=== PATIENT | male | born 1975 | race Caucasian/White ===

== ENCOUNTER 2017-12-20 08:52 | Emergency (ER) | payer MEDICAID ==
[~2017-12-20] VITALS: Ht 165.1 cm; Wt 90.9 kg
[2017-12-20 09:09] VITALS: Ht 165.1 cm; Wt 90.9 kg
[2017-12-20] MEDS ORDERED: ADIPEX-P37.5 M1 PO (09:10)
[2017-12-20] MEDS ORDERED: KLONOPIN1 MG PO (09:11)
[2017-12-20 12:05] LABS: BASOPHILS 0.3 % (0-2); EOSINOPHILS 0.7 % (0-7); HEMATOCRIT 47.5 % (42.0-54.0); HEMOGLOBIN 16.6 g/dL (13.5-17.5); IMMATURE GRANULOCYTES 0.3 % (0-5); LYMPHOCYTES 22.5 % (15-50); MCHC 34.9 g/dL (31.0-37.0); MCV 88.8 fL (80.0-100.0); MEAN PLATELET VOLUME 10.9 fL (7.4-10.4); MONOCYTES 7.2 % (2-11); PLATELET COUNT 187 10x3/uL (130-400); RBC 5.35 10x6/uL (4.20-6.10); RDW 12.9 % (11.5-14.5); WBC 7.2 10x3/uL (4.8-10.8)
[2017-12-20 12:15] LABS: UDS - AMPHET POSITIVE QUAL (NEGATIVE); UDS - BARB NEGATIVE QUAL (NEGATIVE); UDS - BENZO NEGATIVE QUAL (NEGATIVE); UDS - COCAINE NEGATIVE QUAL (NEGATIVE); UDS - OPIATE NEGATIVE QUAL (NEGATIVE); UDS - PCP NEGATIVE QUAL (NEGATIVE); UDS - THC POSITIVE QUAL (NEGATIVE)
[2017-12-20 12:22] LABS: ALBUMIN 3.7 g/dL (3.4-5.0); ALKALINE PHOSPHATASE 80 U/L (46-116); ALT (SGPT) 51 U/L (10-68); BILIRUBIN - TOTAL 0.66 mg/dL (0.2-1.3); CALC OSMOLALITY 277 mosm/kg (275-300); CALCIUM 8.8 mg/dL (8.5-10.1); CARBON DIOXIDE 32.5 mmol/L (21.0-32.0); CHLORIDE - SERUM 102 mmol/L (98-107); GLUCOSE 92 mg/dL (74-106); POTASSIUM - SERUM 4.2 mmol/L (3.5-5.1); PROTEIN - SERUM 7.5 g/dL (6.4-8.2); SODIUM 139 mmol/L (136-145); UREA NITROGEN 12 mg/dL (7-18); eGFR NON AFRICAN AMERICAN 87 mL/min (90-120)
[2017-12-20 17:09] VITALS: BP 125/83
== END 2017-12-20 14:04 | disposition home or self-care (01) ==
LOC: D.ER 08:52
PROVIDERS: Family Medicine
DX: R53.83 Other fatigue (principal); F15.10 Other stimulant abuse, uncomplicated; F22 Delusional disorders

== ENCOUNTER 2018-05-05 10:54 | Outpatient (CLI) | payer MEDICAID ==
[~2018-05-05] VITALS: Ht 165.1 cm; Wt 90.9 kg
--- NOTE | ~2018-05-05 | HEMODYNAMI ---
PATIENT:NIKO VOGEL MEDICAL RECORD: [id number] : 77 LOCATION:[facility] ADMISSION DATE: 05/05/18 Generatedon:05/05/201813:26 Patient name: NIKO VOGEL Patient #: [id number] SSN: : 1975 Date of study: 05/05/2018 Page: Of Hemodynamic Procedure Report Patient Data Patient Demographics Procedure consent was obtained First Name: NIKO Gender: Male Last Name: JASPREET : 1975 Middle Initial: E Age: 42 year(s) Patient #: [id number] Race: Unknown Additional ID: [id number] Contact details Address: [address] [place] [address] State: [place] City: [place] Zip code: [address] Past Medical History Allergies: No known allergies Admission Admission Data Admission Date: 05/05/2018 Admission Time: 10:54 Height (in.): 65 BSA: 2 (m2) Height (cm.): 165.1 BMI: 34.28 (kg/m2) Weight (lbs.): 206 Weight (kg.): 93.44 Lab Results Lab Result Date: 05/05/2018 Lab Result Time: 0:00 Biochemistry Name Units Result Min Max BUN mg/dl 16 --(---*)-- 7 18 Creatinine mg/dl 1 --(--*-)-- 0.6 1.3 CBC Name Units Result Min Max Hemoglobin g/dl 16.6 --(---*)-- 13.5 17.5 Procedure Procedure Types Cath Procedure Diagnostic Procedure LHC LHC w/Coronaries Peripheral Cath Diagnostic Procedure Dope House Operator Helper Peripheral Procedures Lcgkh-Zmpeyvj-Iyi-Off Procedure Description Procedure Date Procedure Date: 05/05/2018 Procedure Start Time: 13:10 Procedure End Time: 13:23 Procedure Staff Name Function Ryan Mcgee MD Performing Physician Janet Lucero RT Monitor Nyasia Pinzon RT Scrub Yesika Serrato RN Nurse Procedure Data Cath Procedure Fluoroscopy Diagnostic fluoroscopy Total fluoroscopy Time: 2.6 time: 2.6 min min Diagnostic fluoroscopy Total fluoroscopy dose: 598 dose: 598 mGy mGy Contrast Material Contrast Material Type Amount (ml) Isovue 300 102 Entry Location Entry Primary Successful Side Size Upsize Upsize Entry Closure Succes sful Closure Location (Fr) 1 (Fr) 2 (Fr) Remarks Device Remarks Femoral Right 5 Fr Exoseal artery Estimated blood loss: 5 ml Diagnostic catheters Device Type Used For End Catheter Placement MULTIPACK JL 4.0 5Fr Procedure catheter DIAGNOSTIC JL 3.5 5Fr catheter ([id number]) MULTIPACK 3DRC 5Fr Procedure catheter MULTIPACK Pigtail 5 Fr Procedure catheter Procedure Complications No complications Procedure Medications Medication Administration Route Dosage 0.9% NaCl I.V. 100 ml/hr Oxygen etCO2 Nasal cannula 2 l/min Lidocaine 2% added to field 20 Heparin Flush Bag added to field 2 bags (1000units/500ml NS) Versed I.V. 2 mg Fentanyl I.V. 100 mcg Versed I.V. 2 mg Fentanyl I.V. 100 mcg Versed I.V. 2 mg Versed I.V. 2 mg Hemodynamics Rest BSA: 2 (m2) HGB: 16.6 (g/dl) O2 Consumption: Estimated: 242.92 (ml/min) O2 Consu mption indexed: Estimated:121.46 (ml/min/m) Heart Rate: 69 (bpm) Pressure Samples Time Site Value (mmHg) Purpose Heart Use Rate(bpm) 13:17 LV 101/6,9 Snapshot 92 13:18 AO 104/70(86) Pullback 90 13:18 LV 94/5,7 Pullback 90 Gradients Valve Time Site 1 Site 2 Mean SEP/DFP Peak To Heart Use (mmHg) (sec/min) Peak Rate (mmHg) (bpm) Aortic 13:18 LV AO 0 90 94/5,7 104/70(86) Calculations Valve P-P Mean Valve Index Valve Source Name Gradient Area Flow (cm2) Aortic 0 0 Snapshots Pre Cath Intra NCS Post Cath Vital Signs Time Heart Resp SPO2 etCO2 NIBP (mmHg) Rhythm Pain Sedation Rate (ipm) (%) (mmHg) Status Level (bpm) 12:50:59 68 17 97 37.4 114/68(89) NSR 0 (11) 10(A) , No pain 12:55:01 70 18 100 36.3 105/86(95) NSR 0 (11) 10(A) , No pain 12:59:07 68 16 98 35.6 113/66(86) NSR 0 (11) 10(A) , No pain 13:03:12 63 12 97 29.6 112/74(91) NSR 0 (11) 10(A) , No pain 13:07:16 67 13 96 37.1 110/79(106) NSR 0 (11) 10(A) , No pain 13:11:20 74 13 98 38.5 126/77(109) NSR 0 (11) 10(A) , No pain 13:15:28 84 16 97 33.4 106/81(102) NSR 0 (11) 10(A) , No pain 13:19:27 94 12 97 37.8 116/81(107) NSR 0 (11) 10(A) , No pain 13:23:35 76 16 98 34.8 109/74(92) NSR 0 (11) 10(A) , No pain Medications Time Medication Route Dose Verified Delivered Reason Notes Eff ectiveness by by 12:50:05 0.9% NaCl I.V. 100 Ryan Yesika used for ml/hr Arely Rojelio procedure MD SHEA 12:50:11 Oxygen etCO2 2 Ryan Yesika used for Nasal l/min Arely Rojelio procedure cannula RN 12:50:16 Lidocaine 2% added 20ml Ryan Ryan for local to vial [facility] anesthetic field MD RICCI 12:50:23 Heparin Flush added 2 Ryan Ryan used for Bag to bags [facility] procedure (1000units/500ml field MD RICCI NS) 13:10:17 Versed I.V. 2 mg Ryan Yesika for Arely Rojelio sedation MD SHEA 13:10:23 Fentanyl I.V. 100 Ryan Yesika for mcg Arely Rojelio sedation RN 13:14:12 Versed I.V. 2 mg Ryan Yesika for Arely Rojelio sedation MD SHEA 13:14:17 Fentanyl I.V. 100 Ryan Yesika for mcg Arely Rojelio sedation MD SHEA 13:19:45 Versed I.V. 2 mg Ryan Yesika for Arely Rojelio sedation MD SHEA 13:20:18 Versed I.V. 2 mg Ryan Yesika for Arely Rojelio sedation MD fitness management director Log Time Note 12:39:11 Patient Height : 65 inches 12:39:14 Patient Weight : 206 lbs 12:39:24 H&P Date Dictated: 04/11/2018 Within 30 days and on chart., H&P Addendum completed by physician on day of procedure. (MUST COMPLETE FOR ALL OUTPATIENTS). 12:39:33 Patient allergic to No known allergies 12:40:48 Yesika Serrato RN sent for patient. Start room use. 12:40:49 Time tracking: Regular hours (M-F 7:00 - 5:00) 12:40:52 Plan of Care:Hemodynamics will remain stable., Cardiac rhythm will remain stable., Comfort level will be maintained., Respiratory function will remain adequate., Patient/ family verbilizes understanding of procedure., Procedure tolerated without complication., Recovers from procedure without complications.. 12:40:53 Signed procedure consent form obtained from patient. 12:45:34 Patient received from Pre/Post Procedure Room to [facility] 2 Alert and oriented. Tansferred to table in Supine position. 12:45:39 Warm blankets applied, and kodi hugger turned on for patient comfort. 12:45:40 Correct patient and procedure confirmed by team. 12:45:40 ECG and BP/O2 sat monitors applied to patient. 12:49:52 Vital chart was started 12:50:05 0.9% NaCl 100 ml/hr I.V. was administered by Yesika Serrato RN; used for procedure; 12:50:11 Oxygen 2 l/min etCO2 Nasal cannula was administered by Yesika Serrato RN; used for procedure; 12:50:16 Lidocaine 2% 20ml vial added to field was administered by Ryan Mcgee MD; for local anesthetic; 12:50:23 Heparin Flush Bag (1000units/500ml NS) 2 bags added to field was administered by Ryan Mcgee MD; used for procedure; 12:57:34 Baseline sample Acquired. 12:57:37 Rhythm: sinus rhythm 12:57:38 Full Disclosure recording started 12:57:38 Pre-procedure instructions explained to patient. 12:57:39 Pre-op teaching completed and patient verbalized understanding. 12:57:40 Family in patients room. 12:57:42 Patient NPO since Midnight. 12:57:44 Is patient on blood thinner?Yes 12:57:45 Patient diabetic? No. 12:57:48 Previous problem with sedation/anesthesia? No ? 12:57:48 Snore? Yes 12:57:50 Sleep apnea? No 12:57:51 Deviated septum? No 12:57:51 Opens mouth fully? Yes 12:57:52 Sticks out tongue? Yes 12:57:54 Airway obstruction? No ? 12:57:57 Dentures? No ? 12:58:55 Pre procedure: right dorsailis pedis pulse 2+ Normal; easily identifiable; not easily obliterated 12:58:58 Pre procedure: left dorsailis pedis pulse 2+ Normal; easily identifiable; not easily obliterated 12:59:08 IV patent on arrival in left hand with 0.9% NaCl at [facility]. 12:59:12 Lab results completed and on chart. 12:59:14 Bilateral groins area was prepped with chlora-prep and draped in sterile fashion 12:59:15 Alarms reviewed by R. N. 12:59:15 Sharps counted by scrub and verified by R.N. 13:08:26 Lab Result : BUN 16 mg/dl 13:08:26 Lab Result : Creatinine 1 mg/dl 13:08:26 Lab Result : Hemoglobin 16.6 g/dl 13:08:46 --------ALL STOP TIME OUT------ 13:08:46 Final Timeout: patient, procedure, and site verified with staff and physician. All members of the team are in agreement. 13:08:48 Bilateral groins site verified by team. 13:08:51 Physical assessment completed. ASA score P 2 - A patient with mild systemic disease as per Ryan Mcgee MD. 13:08:53 Sedation plan: IV Moderate Sedation Medication:Versed, Fentanyl 13:08:58 Use device set Femoral Dx 13:08:59 ACIST Syringe (55278) opened to sterile field. 13:09:00 Bag Decanter (2001S) opened to sterile field. 13:09:01 ACIST Hand Control (29150) opened to sterile field. 13:09:01 ACIST Manifold (04323) opened to sterile field. 13:09:02 Tegaderm 4 x 4 (1626W) opened to sterile field. 13:09:03 Medline Cath Pack ([id number]) opened to sterile field. 13:09:03 DIAGNOSTIC WIRE .035 260cm J wire (830553) opened to sterile field. 13:09:04 DIAGNOSTIC Multipack 5Fr catheter set (UR9478) opened to sterile field. 13:09:05 SHEATH 5FR Sells (MGU269) opened to sterile field. 13:10:17 Procedure started. 13:10:17 Versed 2 mg I.V. was administered by Yesika Serrato RN; for sedation; 13:10:23 Fentanyl 100 mcg I.V. was administered by Yesika Serrato RN; for sedation; 13:10:43 Zero performed for pressure channel P1 13:10:50 Local anesthetic to right femoral artery with Lidocaine 2% by Ryan Mcgee MD.INITIAL ACCESS ONLY 13:10:58 A 5 Fr sheath was inserted into the Right Femoral artery 13:11:32 Zero performed for pressure channel P1 13:11:58 A MULTIPACK JL 4.0 5Fr catheter was advanced over the wire and used for Procedure. 13:13:08 Catheter removed. 13:13:17 UNABLE TO ENGAGE LCA 13:13:33 A DIAGNOSTIC JL 3.5 5Fr catheter ([id number]) was advanced over the wire and used for . 13:14:12 Versed 2 mg I.V. was administered by Yesika Serrato RN; for sedation; 13:14:17 Fentanyl 100 mcg I.V. was administered by Yesika Serrato RN; for sedation; 13:14:49 LCA angiography performed. 13:15:15 Catheter removed. 13:15:25 A MULTIPACK 3DRC 5Fr catheter was advanced over the wire and used for Procedure. 13:16:20 RCA angiography performed. 13:16:23 Catheter removed. 13:16:40 A MULTIPACK Pigtail 5 Fr catheter was advanced over the wire and used for Procedure. 13:17:09 LV gram done using BLACKWELL 13:17:15 Injector settings: Ml/sec: 10, Volume: 20, 13:17:33 LV hemodynamics recorded. 13:18:07 EF : 55 % 13:18:23 CATHETER PULLED DOWN FOR AFRO 13:18:29 Abdominal angiogram w/ runoff was performed. 13:18:48 Left leg runoff performed. 13:19:19 Right leg runoff performed. 13:19:45 Versed 2 mg I.V. was administered by Yesika Serrato RN; for sedation; 13:19:45 Catheter removed. 13:19:48 EXOSEAL 5Fr (EX500) opened to sterile field. 13:19:59 Sheath removed intact; hemostasis achieved with Exoseal to the Right Femoral artery. 13:20:13 Procedure ended.(Physican Out) 13:20:18 Versed 2 mg I.V. was administered by Yesika Serrato RN; for sedation; 13:20:33 Fluoroscopy time 02.60 minutes. 13:20:37 Fluoroscopy dose: 598 mGy 13:20:37 Flurop Dose total: 598 13:20:44 Contrast amount:Isovue 300 102ml. 13:20:47 Sharps counted by scrub and verified by R.N. 13:20:51 Post-op/insertion site Right Femoral artery dressed using a 4 x 4 and Tegaderm. 13:20:56 Post right femoral artery:stable, soft, clean and dry 13:21:02 Post procedure: right dorsailis pedis pulse 2+ Normal; easily identifiable; not easily obliterated. 13:21:13 Post-procedure physical assessment completed. ASA score P 2 - A patient with mild systemic disease as per Ryan Mcgee MD. 13:21:23 Post procedure rhythm: sinus rhythm 13:21:34 Estimated blood loss: 5 ml 13:21:35 Post procedure instruction explained to patient.Patient verbalizes understanding. 13:21:36 Patient needs reinforcement of post procedure teaching. 13:22:47 Procedure and supply charges have been captured, reviewed, submitted and are correct. 13:22:50 Procedure Complication : No complications 13:22:55 Vital chart was stopped 13:22:55 See physician's report for complete and final results. 13:22:57 Report given to Pre/Post Procedure Room. 13:23:00 Patient transfered to Pre/Post Procedure Room with Bed. 13:23:03 Procedure ended. 13:23:03 Full Disclosure recording stopped 13:23:09 End room use (Document Last) Device Usage Item Name Manufacture Quantity Catalog Hospital Part Current Minimal L ot# / Number Charge Number Stock Stock Serial# Code ACIST Acist 1 54232 870826 297843 204121 20 VIXXI Solutions (01178) SDI-Solution Inc Bag Microtek 1 758315 35683 961084 5 Decanter Medical Inc. (2001S) ACIST Hand Acist 1 60274 491870 139005 541723 5 Control Medical (68405) Systems Inc ACIST Acist 1 87454 334605 440625 793877 5 Manifold Medical (22216) Systems Inc Tegaderm 4 3M 1 1626W 864237 374136 560319 5 x 4 (1626W) Medline Medline 1 [id number] 640393 86548 096264 5 Cath Pack ([id number]) DIAGNOSTIC [facility] 1 815892 418868 673878 394381 30 WIRE .035 260cm J wire (671357) DIAGNOSTIC Cardinal 1 FX5744 747782 24666 158203 30 Multipack Health 5Fr catheter set (ZX8302) SHEATH 5FR Terumo [address] 290440 512549 907977 5 Sells (PGX148) MULTIPACK Cardinal 1 738932 5 JL 4.0 5Fr Health catheter DIAGNOSTIC Cardinal 1 [id number] 008224 468900 761452 5 JL 3.5 5Fr Health catheter ([id number]) MULTIPACK Cardinal 1 220221 5 3DRC 5Fr Health catheter MULTIPACK Cardinal 1 519000 5 Pigtail 5 Health Fr catheter EXOSEAL 5Fr Cardinal 1 EX500 633453 462071 378736 10 (EX500) Health Signature Audit [place] Stage Time Signature Unsigned Intra-Procedure 05/05/2018 Janet Lucero 1:26:19 PM RT(R) Signatures Monitor : Janet Lucero Signature : RT Date : Time : [place] [id number] [place] [address]
[~2018-05-05 10:54] MED LIST: ADIPEX-P37.5 M1 PO; KLONOPIN1 MG PO
[2018-05-05] MEDS ORDERED: HYDROCODON-ACET15 ML PO (11:19)
[2018-05-05] MEDS ORDERED: OMEPRAZOLE20 M1 PO (11:20)
[2018-05-05 11:33] VITALS: BP 121/78; Ht 165.1 cm; Wt 90.9 kg
[2018-05-05 11:45] LABS: BASOPHILS 0.3 % (0-2); EOSINOPHILS 1.7 % (0-7); HEMATOCRIT 46.7 % (42.0-54.0); HEMOGLOBIN 16.6 g/dL (13.5-17.5); IMMATURE GRANULOCYTES 0.1 % (0-5); MCHC 35.5 g/dL (31.0-37.0); MCV 87.3 fL (80.0-100.0); MEAN PLATELET VOLUME 10.8 fL (7.4-10.4); MONOCYTES 6.5 % (2-11); NEUTROPHILS 60.4 % (40-80); PLATELET COUNT 197 10x3/uL (130-400); RBC 5.35 10x6/uL (4.20-6.10); RDW 13.2 % (11.5-14.5)
[2018-05-05 11:53] LABS: CALC OSMOLALITY 279 mosm/kg (275-300); CARBON DIOXIDE 28.5 mmol/L (21.0-32.0); CHLORIDE - SERUM 103 mmol/L (98-107); GLUCOSE 91 mg/dL (74-106); POTASSIUM - SERUM 4.2 mmol/L (3.5-5.1); SODIUM 140 mmol/L (136-145); UREA NITROGEN 16 mg/dL (7-18); eGFR NON AFRICAN AMERICAN 87 mL/min (90-120)
--- NOTE | 2018-05-05 13:50 | NUR ---
DRESSING CDI TO RIGHT GROIN, AREA IS SOFT AND NONTENDER. PEDAL PULSES PALPABLE. HOB IS FLAT, DENIES ANY C/O CHEST PAIN, MATTHEW PO FLUIDS WITH NO C/O NAUSEA.
--- NOTE | 2018-05-05 14:03 | NUR ---
PT ALERT, C/O MOUTH BEING DRY, PO FLUIDS AT BEDSIDE. SERVED JELLO AND PUDDING. VSS. DRESSING CDI, PEDAL PULSES PALPABLE. PARENTS AT BEDSIDE. HOB FLAT, CALL LIGHT IN REACH.
--- NOTE | 2018-05-05 14:23 | NUR ---
PT C/O HEADACHE AND NECK PAIN,STATES HAS NECK PROBLEMS AND LAYING FLAT EXACERBATES THIS. ORDER RECEIVED FOR NORCO 10MG PO X1 AND THIS GIVEN, PT MATTHEW SODA AND JELLO WITH NO C/O NAUSEA. HOB IS FLAT, BED TILTED, MOTHER AT BEDSIDE, VSS, SAT IS 96% ON ROOM AIR. DRESSING IS CDI, PEDAL PULSES PALPABLE.
--- NOTE | 2018-05-05 14:40 | NUR ---
HOB ELEVATED 30 DEGREES, SANDWICH AND MORE SODA SERVED.
--- NOTE | 2018-05-05 15:24 | NUR ---
1500 HOB FULLY ELEVATED, DRESSING REMAINS CDI TO RIGHT GROIN, AREA IS SOFT AND NONTENDER. PEDAL PULSES PALPABLE. PT ALERT AND DENIES ANY C/O. VSS. 1520 DRESSING REMAINS CDI, PEDAL PULSES PALPABLE. PT HAS MATTHEW SANDWICH WITH NO C/O NAUSEA. IV DC'D WITH CATH INTACT AND PT IS DRESSING FOR DC.
--- NOTE | 2018-05-05 16:07 | NUR ---
1535 DC INSTRUCTIONS HAVE BEEN REVIEWED WITH PT AND MOTHER WHO VERBZLIZE UNDERSTANDING. PT HAS AMBULTED TO THE BATHROOMA ND VOIDED QS. RECHECKED GROIN AND AREA IS SOFT AND NONTENDER. DRESSING IS CDI. PT DENIES ANY C/O UPON DC, PT ESCORTED TO PRIVATE AUTO VIA WC BY NURSE WITH FATHER DRIVING HIM HOME.
--- NOTE | 2018-05-17 11:50 | OP ---
PATIENT NAME: NIKO VOGEL MEDICAL RECORD: [id number] :77 LOCATION:D.CAT ADMISSION DATE: SURGEON: SUSAN EVANS MD DATE OF OPERATION: 05/05/2018 PROCEDURE: Left heart catheterization, selective coronary angiography plus aortofemoral runoff, right femoral artery approach. CATHETERS: A 5-Slovenian sheath, 5/4 left and right Sophy, 5/4 pig. The procedure was well tolerated. The patient was returned to the head. Sheath was removed. Adequate hemostasis was obtained. FINDINGS: Left ventriculography in 30-degree BLACKWELL view: Normal wall motion and normal systolic function. CORONARY ANATOMY: LEFT MAIN: Left main is free of disease. LAD: Free of disease in the diagonal system. CIRCUMFLEX: Free of disease in the marginal system. RIGHT CORONARY ARTERY: Dominant artery, gives rise to PDA, free of disease. At the end of this procedure, the pigtail catheter was drawn below the diaphragm to the level of the renal arteries and aortofemoral runoff was performed. Nonselective engagement of the renal arteries shows no evidence of stenosis. The descending aorta itself shows no evidence of dissection or aneurysmal dilatation. No evidence of stenosis. RIGHT LOWER EXTREMITY: Right iliac; common, internal, and external; are smooth walled and free of disease. Right femoral; common, superficial, and deep; are smooth-walled vessels and free of disease with good 2-vessel runoff. LEFT SYSTEM: Left common, internal, and external iliac are smooth walled and free of disease. Left femoral system; deep, superficial, and common; free of disease with good 2-vessel runoff. IMPRESSION: False positive studies at Doppler from outside hospital with no evidence of atherosclerotic disease. TRANSINT:[id number] Voice Confirmation ID: [id number] DOCUMENT ID: [id number] SUSAN EVANS MD at 1150 CC: [id number] DICTATION DATE: 05/05/18 1329 DIRECTOR OF SCIENCE: 05/05/18 1825 DEP CLI 05/05/18 [place] [address] [place] [address]
== END 2018-05-05 15:35 | disposition home or self-care (01) ==
LOC: D.CATH 10:54
PROVIDERS: Internal Medicine Interventional Cardiology
DX: R07.89 Other chest pain (principal); Z01.812 Encounter for preprocedural laboratory examination

== ENCOUNTER → 2019-05-19 12:09 | Outpatient (CLI) | payer MEDICAID ==
[2018-05-05 11:33] VITALS: BMI 33.3
--- NOTE | ~2019-05-19 | EC ---
PATIENT:NIKO VOGEL DATE OF SERVICE: 05/19/19 SEX: M MEDICAL RECORD: [id number] DATE OF : [birth year] [facility] AGE OF PATIENT: 43 ADMISSION DATE: 05/19/19 REFERRING PHYSICIAN: INTERPRETING PHYSICIAN: SUSAN EVANS MD ECHOCARDIOGRAM REPORT ECHO CHARGES 4 ECHO COMPLETE Date: 05/19/19 CLINICAL DIAGNOSIS: HEART MURMUR ECHOCARDIOGRAPHIC MEASUREMENTS (adult normal given) AC root (d.<3.7cm) 3.7 cm LV Septum d (<1.2 cm> 1.3 cm Valve Excursion 1.7 cm LV Septum (systole) 1.6 cm Left Atria (s.<4.0cm> 3.3 cm LVPW d(<1.2cm) 1.5 cm RV (d.<2.3cm) 3.7 cm LVPW (sytole) 1.7 cm LV diastole(<5.6CM) 4.6 cm MV E-F(>70mm/sec) cm LV systole 2.7 cm LVOT Diameter 1.9 cm MV exc.(>10mm) 1.6 cm Est.ejection fraction (50-75%) % DOPPLER: LVIT cm/sec A 77.0 cm/sec E 58.0 cm/sec LA cm/sec RVSP 25 mmHg LVOT 92 cm/sec AOP1/2T m/s Asc. Ao 123 cm/sec RVOT 73 cm/sec RA cm/sec PA 116 cm/sec AV Gradient Peak 6.05 mmHg AV Mean 3.02 mmHg AV Area 2.5 cm MV Gradient Peak 2.71 mmHg MV Mean 1.35 mmHg MV Area cm COMMENTS: Product Marketer: 2 SIOBHAN WELLS Section Hand Helper: 3 Dr. Caruso TAPE# PACS Pericardial Effusion N DATE OF SERVICE: Adequate 2-D echo, Color-Flow and Spectral Doppler, and M-mode Mild LVH. LV internal dimensions are normal. Wall motion is normal. EF is greater than or equal to 55%. Aortic valve is tricuspid. No evidence of stenosis by Doppler interrogation. Left atrium normal at 3.3 cm. Mitral valve shows no prolapse. Trace MR. Right-sided chambers are grossly normal. Trace TR. ECHOCARDIOGRAM REPORT [id number] NIKO VOGEL TRANSINT:[id number] Voice Confirmation ID: [id number] DOCUMENT ID: [id number] SUSAN EVANS MD CC: [id number] DICTATION DATE: 05/22/19 1518 SKIP LOAD DRIVER: 05/22/19 1839 DEP CLI 05/19/19 [place] [id number] [place] [id number]
[~2019-05-19 12:09] MED LIST changes: +HYDROCODON-ACET15 ML PO; +OMEPRAZOLE20 M1 PO
== END | disposition home or self-care (01) ==
LOC: D.HCCECHO 05-18 14:00
PROVIDERS: ATTEND Internal Medicine Interventional Cardiology
DX: R01.1 Cardiac murmur, unspecified (principal); R60.9 Edema, unspecified

== ENCOUNTER → 2020-07-30 10:54 | Outpatient (CLI) | payer MEDICAID ==
[2020-07-02 13:42] VITALS: BMI 33.3
[~2020-07-30 10:54] MED LIST changes: +ADIPEX-P37.5 MG PO; +HYDROCODON-ACE1 EAC7 PO; +MONODOX100 MG PO
== END | disposition home or self-care (01) ==
LOC: D.US 10:54
PROVIDERS: ATTEND Internal Medicine Interventional Cardiology
DX: I65.23 Occlusion and stenosis of bilateral carotid arteries (principal)

== ENCOUNTER → 2020-08-05 11:13 | Outpatient (CLI) | payer MEDICAID ==
[2020-07-02 13:42] VITALS: BMI 33.3
--- NOTE | 2020-08-07 10:02 | EC ---
PATIENT:NIKO VOGEL DATE OF SERVICE: 08/05/20 SEX: M MEDICAL RECORD: [id number] DATE OF : [birth year] LOCATION:[facility] AGE OF PATIENT: 44 ADMISSION DATE: 08/05/20 REFERRING PHYSICIAN: INTERPRETING PHYSICIAN: SUSAN EVANS MD ECHOCARDIOGRAM REPORT ECHO CHARGES 4 ECHO COMPLETE Date: 08/05/20 CLINICAL DIAGNOSIS: HEART MURMUR, HX OF [place]ACK[place] TICK FEVER ECHOCARDIOGRAPHIC MEASUREMENTS (adult normal given) AC root (d.<3.7cm) 3.5 cm LV Septum d (<1.2 cm> 1.3 cm Valve Excursion 2.1 cm LV Septum (systole) 1.5 cm Left Atria (s.<4.0cm> 3.7 cm LVPW d(<1.2cm) 1.4 cm RV (d.<2.3cm) 4.0 cm LVPW (sytole) 1.6 cm LV diastole(<5.6CM) 4.3 cm MV E-F(>70mm/sec) cm LV systole 3.2 cm LVOT Diameter 1.9 cm MV exc.(>10mm) 1.7 cm Est.ejection fraction (50-75%) % DOPPLER: LVIT cm/sec A 72.0 cm/sec E 86.0 cm/sec LA cm/sec RVSP 26 mmHg LVOT 110 cm/sec AOP1/2T m/s Asc. Ao 126 cm/sec RVOT 69 cm/sec RA cm/sec PA 120 cm/sec AV Gradient Peak 6.31 mmHg AV Mean 3.10 mmHg AV Area 2.7 cm MV Gradient Peak 3.62 mmHg MV Mean 1.64 mmHg MV Area cm COMMENTS: Vegetable Grower: 2 SIOBHAN WELLS Manager Federal: 3 Dr. Caruso TAPE# PACS Pericardial Effusion N DATE OF SERVICE: Adequate 2D, color flow imaging, spectral Doppler, and M-Mode. FINDINGS: LVH is present. LV internal dimension is normal. Wall motion is normal. EF is greater than or equal to 55%. Aortic valve is tricuspid. No evidence of stenosis by Doppler interrogation. Left atrium is normal. Mitral valve shows no prolapse. Trivial MR. Right side is grossly normal. Trivial TR. ECHOCARDIOGRAM REPORT [id number] NIKO VOGEL TRANSINT:[id number] Voice Confirmation ID: [id number] DOCUMENT ID: [id number] SUSAN EVANS MD at 1002 CC: [id number] DICTATION DATE: 08/06/20 1523 AIR BRAKE RIGGER: 08/06/20 2257 [facility] CLI 08/05/20 [place] [id number] [place] [id number]
== END | disposition home or self-care (01) ==
LOC: D.HCCARDIO 10:30 → D.HCCECHO 11:00 → D.HCCARDIO 11:13
PROVIDERS: ATTEND Internal Medicine Interventional Cardiology
DX: R01.1 Cardiac murmur, unspecified (principal)

== ENCOUNTER → 2020-08-21 10:17 | Outpatient (CLI) | payer MEDICAID ==
[2020-07-02 13:42] VITALS: BMI 33.3
== END | disposition home or self-care (01) ==
LOC: D.HCCARDIO 10:00
PROVIDERS: ATTEND Internal Medicine Interventional Cardiology
DX: I20.9 Angina pectoris, unspecified (principal)